=== PATIENT | female | born 1965 | race Hispanic/Latino ===

== ENCOUNTER 2024-08-10 16:44 | Emergency (ER) | payer BC ==
[~2024-08-10] VITALS: Ht 157.5 cm; Wt 65.8 kg
[2024-08-10 16:54] VITALS: PULSE 95; RESP 18; TEMP 97.6
[2024-08-10] MEDS ORDERED: IBUPROFEN 600 MG TAB ONE (17:20)
[2024-08-10] MEDS: IBUPROFEN 600 MG TAB PO STA (17:23)
[2024-08-10] MEDS ORDERED: NAPROSYN500 MG PO (19:15)
[2024-08-10] MEDS ORDERED: ACETAMINOPHEN-1 EAC4 PO (19:15)
[2024-08-10 20:00] VITALS: BP 130/80; PULSE 100; RESP 17; TEMP 98; O2SAT 96
== END 2024-08-10 20:09 | disposition home or self-care (01) ==
LOC: ER 17:39
DX: S52.591A Other fractures of lower end of right radius, initial encounter for closed fracture (principal); S63.592A Other specified sprain of left wrist, initial encounter; W01.0XXA Fall on same level from slipping, tripping and stumbling without subsequent striking against object, initial encounter; Y93.01 Activity, walking, marching and hiking; Y92.89 Other specified places as the place of occurrence of the external cause; I10 Essential (primary) hypertension; E11.9 Type 2 diabetes mellitus without complications; E78.5 Hyperlipidemia, unspecified
CPT/HCPCS: 99284